=== PATIENT | female | born 1945 | race American Indian/Alaskan Native ===

== ENCOUNTER 2017-06-09 07:29 | Day surgery (SDC) | payer MEDICARE ==
[2016-10-09 13:04] VITALS: BMI 44.2
[2017-06-09] MEDS ORDERED: Bupivacaine HCl 0.25% PF (10 ml) Inj ONE (10:06)
[2017-06-09] MEDS ORDERED: Iohexol 240 (50 ml) ONE (10:07)
[2017-06-09] MEDS ORDERED: MethylPREDNISolone Depo 40 mg/ml Inj ONE (10:07)
[2017-06-09] MEDS ORDERED: Propofol 10 mg/ml Inj (20 ML) ONE (10:16)
[2017-06-09 11:07] VITALS: O2SAT 99
[2017-06-09 14:06] VITALS: BP 131/66; PULSE 88; RESP 15; TEMP 97.5
--- NOTE | 2017-06-09 17:19 | RAD ---
PROCEDURE: Intraoperative Fluoroscopy. HISTORY: LUMBAR FACET BLOCK FINDINGS: Fluoroscopic assistance was provided for lumbar facet block. Please fluoroscopic time (continuous mode) utilized during the procedure: 14.0 seconds.
== END 2017-06-09 12:13 | disposition home or self-care (01) ==
LOC: C.SDS 07:29
PROVIDERS: ATTEND Anesthesiology Pain Medicine
DX: M47.816 Spondylosis without myelopathy or radiculopathy, lumbar region (principal)
CPT/HCPCS: 62323; 82948; J1030; J2704

== ENCOUNTER 2017-09-29 08:10 | Day surgery (SDC) | payer MEDICARE ==
[2016-10-09 13:04] VITALS: BMI 44.2
[~2017-09-29 08:10] MED LIST: Bupivacaine HCl 0.25% PF (10 ml) Inj ONE; Iohexol 240 (50 ml) ONE; Lidocaine Hydrochloride 5 ML INJ ONE; MethylPREDNISolone Depo 40 mg/ml Inj ONE
[2017-09-29] MEDS ORDERED: Propofol 10 mg/ml Inj (20 ML) ONE (09:31)
--- NOTE | 2017-09-29 10:18 | OP ---
PREOPERATIVE DIAGNOSES: 1. Lumbar spondylosis without myelopathy. 2. Myalgias. POSTOPERATIVE DIAGNOSES: 1. Lumbar spondylosis without myelopathy. 2. Myalgias. PROCEDURE: 1. Lumbar medial branch blocks at L3-L4, L4-L5, and L5-S1, bilateral. 2. Trigger point injections. X-RAY: [id number], fluoroscopy of the spine. ANESTHESIA: MAC/local. SURGEON: Franky Dumont MD COMPLICATIONS: None. BLOOD LOSS: 2 mL. INDICATION: On physical exam, this patient's pain was made worse by side bending toward the affected side or extending the spine (backward bending). The patient's back will generally feel stiff in the morning, and prolonged inactivity such as sitting, standing for prolonged periods causes the axial pain to refer to the mid lower back. This pain is intractable and unresponsive to conservative management. The pain is adversely affecting quality of life and activities of daily living. TECHNIQUE: After comprehensive informed consent was obtained, the risks of the procedure explained and questions answered. The patient was placed prone on the operating table in a comfortable position. Confirmation of the procedure to be performed was obtained from the patient. The skin overlying the area to be injected was confirmed and cleaned in a strict sterile fashion using chlorhexidine. Sterile drape was placed around the area to be injected. The area to be injected was superficially anesthetized with 1 mL of 1% lidocaine using a 27-gauge, 1.25-inch needle at each level noted above. Under fluoroscopic guidance, a curved 22-gauge, 3.5-inch spinal needle was advanced until the tip of the needle was ventro-medial to position the tip adjacent to the articular pillar, in contact with bone midway between the zygapophyseal joints above and below. The patient experienced no paresthesia during needle placement. The bone was contacted, and the C-arm was rotated laterally to confirm proper needle placement. The patient experienced no paresthesias in the upper extremities during needle placement. After negative aspiration for blood, 0.5 mL of non-ionic contrast was injected to outline the medial branch nerve. Then, 1 mL of a mixture of 0.25% Marcaine and 80 mg of Depo-Medrol was slowly injected at each level. The needle was removed, and a Band-Aid was placed over the puncture site. The fluoroscopic image was stored for the medical record. Trigger Point Injections: A 27-gauge needle was used to inject trigger point areas in paralumbar muscles, parathoracic muscles, and upper gluteal muscles. Needle was redirected to sciatic nerve branches. Total volume of 12 mL of 0.25% Marcaine mixed with 40 mg Kenalog. Intermittent aspiration was done throughout with no heme or CSF aspirated throughout. Patient tolerated procedure well. ASSESSMENT: Upon discharge, the patient noted more than 80% relief in the affected painful area. The patient was given a pain diary to utilize over the next 4 hours while performing activities that are normally aggravating. 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 The patient understands that this block is diagnostic and temporary. If there is significant pain relief during the next 4 hours, we will schedule for radiofrequency ablation of the offending pain fibers around the affected facet joints to help provide long-term relief. DISPOSITION: The patient was given instructions to follow up in two weeks and was discharged in stable condition. No events or complications. Franky Dumont MD
[2017-09-29 10:41] VITALS: O2SAT 100
[2017-09-29 13:43] VITALS: TEMP 97.5
[2017-09-29 13:46] VITALS: BP 128/80; PULSE 75; RESP 18
--- NOTE | 2017-09-29 13:49 | RAD ---
PROCEDURE: Intraoperative Fluoroscopy. HISTORY: LUMBAR RADICULOPATHY FINDINGS: Fluoroscopic assistance was provided. Fluoroscopic assistance was provided. 19.5 seconds fluoroscopy time utilized during this procedure. Radiation dose = 6.0 mGy. . Please refer to the operative report for additional detail
== END 2017-09-29 11:12 | disposition home or self-care (01) ==
LOC: C.SDS 08:10
PROVIDERS: ATTEND Anesthesiology Pain Medicine
DX: M47.817 Spondylosis without myelopathy or radiculopathy, lumbosacral region (principal); M79.1 Myalgia; N92.0 Excessive and frequent menstruation with regular cycle
CPT/HCPCS: 20552; 64493; 64495; 76000; 82948; J1030; J2704

== ENCOUNTER 2018-03-23 06:47 | Day surgery (SDC) | payer MEDICARE ==
[2016-10-09 13:04] VITALS: BMI 44.2
[~2018-03-23 06:47] MED LIST changes: +Bupivacaine 0.25% 20 ML INJ IJ ONE; -Bupivacaine HCl 0.25% PF (10 ml) Inj ONE; -Lidocaine Hydrochloride 5 ML INJ ONE
[2018-03-23] MEDS ORDERED: Lidocaine Hydrochloride 10 ML INJ ONE (07:52)
[2018-03-23 07:57] VITALS: RESP 20
[2018-03-23] MEDS ORDERED: Midazolam 2 MG/2 ML VIAL ONE (08:22)
[2018-03-23] MEDS ORDERED: Propofol 10 mg/ml Inj (20 ML) ONE (08:26)
[2018-03-23 12:39] VITALS: BP 157/78; PULSE 93; TEMP 98.3; O2SAT 99
--- NOTE | 2018-03-23 16:59 | RAD ---
Date of service: 03/23/2018 PROCEDURE: Intraoperative fluoroscopy HISTORY: LUMBAR SOPNDYLOSIS COMPARISON: Not available TECHNIQUE: Intraoperative fluoroscopy was provided for interventional pain management procedure. Total time of fluoroscopy was 16.4 seconds. Cumulative dose was 2.55 mGy. FINDINGS: Multiple fluoroscopic spot films are submitted. IMPRESSION: Fluoroscopy provided
--- NOTE | 2018-03-23 19:07 | OP ---
Copied To: Franky Dumont MD Attending MD: Franky Dumont MD PROCEDURE DATE: 03/23/2018 PREOPERATIVE DIAGNOSES: 1. Lumbar spondylosis without myelopathy. 2. Myalgias. POSTOPERATIVE DIAGNOSES: 1. Lumbar spondylosis without myelopathy. 2. Myalgias. PROCEDURE: 1. Right and left L3-L4, L4-L5, L5-S1 medial branch blocks. 2. Trigger point injections. X-RAY: [id number], fluoroscopy of the spine. ANESTHESIA: MAC/local. SURGEON: Franky Dumont MD COMPLICATIONS: None. BLOOD LOSS: 2 mL. INDICATION: On physical exam, this patient's pain was made worse by side bending toward the affected side or extending the spine (backward bending). The patient's back will generally feel stiff in the morning, and prolonged inactivity such as sitting, standing for prolonged periods causes the axial pain to refer to the mid lower back. This pain is intractable and unresponsive to conservative management. The pain is adversely affecting quality of life and activities of daily living. TECHNIQUE: After comprehensive informed consent was obtained, the risks of the procedure explained and questions answered. The patient was placed prone on the operating table in a comfortable position. Confirmation of the procedure to be performed was obtained from the patient. The skin overlying the area to be injected was confirmed and cleaned in a strict sterile fashion using chlorhexidine. Sterile drape was placed around the area to be injected. The area to be injected was superficially anesthetized with 1 mL of 1% lidocaine using a 27-gauge, 1.25-inch needle at each level noted above. Under fluoroscopic guidance, a curved 22-gauge, 3.5-inch spinal needle was advanced until the tip of the needle was ventro-medial to position the tip adjacent to the articular pillar, in contact with bone midway between the zygapophyseal joints above and below. The patient experienced no paresthesia during needle placement. The bone was contacted, and the C-arm was rotated laterally to confirm proper needle placement. The patient experienced no paresthesias in the upper extremities during needle placement. After negative aspiration for blood, 0.5 mL of non-ionic contrast was injected to outline the medial branch nerve. Then, 1 mL of a mixture of 0.25% Marcaine and 80 mg of Depo-Medrol was slowly injected at each level. The needle was removed, and a Band-Aid was placed over the puncture site. The fluoroscopic image was stored for the medical record. Trigger Point Injections: A 27-gauge needle was used to inject trigger piont areas in paralumbar muscles, parathoracic muscles, and upper gluteal muscles. Needle was redirected to sciatic nerve branches. Total volume of 12 mL of 0.25% Marcaine mixed with 40 mg Kenalog. Intermittent aspiration was done throughout with no heme or CSF aspirated throughout. Patient tolerated procedure well. ASSESSMENT: Upon discharge, the patient noted more than 80% relief in the affected painful area. The patient was given a pain diary to utilize over the next 4 hours while performing activities that are normally aggravating. 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 The patient understands that this block is diagnostic and temporary. If there is significant pain relief during the next 4 hours, we will schedule for radiofrequency ablation of the offending pain fibers around the affected facet joints to help provide long-term relief. DISPOSITION: Patient was given instructions to follow up in two weeks and was discharged in stable condition. No events or complications. Franky Dumont MD
== END 2018-03-23 11:08 | disposition home or self-care (01) ==
LOC: C.SDS 06:47
PROVIDERS: ATTEND Anesthesiology Pain Medicine
DX: M47.816 Spondylosis without myelopathy or radiculopathy, lumbar region (principal)
CPT/HCPCS: 20553; 64493; 64494; 64495; 82948; J1030; J2001; J2250; J2704